=== PATIENT | male | born 1955 | race African-American/Black ===

== ENCOUNTER 2022-11-14 19:03 | Inpatient (IN) | payer MEDICARE, OTHER ==
[~2022-11-14] VITALS: Ht 170.2 cm; Wt 59.9 kg
[2022-11-15] MEDS ORDERED: MAG HYDROX/AL HYDROX/SIMETH 30 ML UDC PO PRN
[2022-11-15] MEDS ORDERED: ACETAMINOPHEN 325 MG TABLET PO PRN
[2022-11-15] MEDS ORDERED: clonazePAM 0.5 MG TABLET PO PRN
[2022-11-15] MEDS ORDERED: MAGNESIUM HYDROXIDE 30 ML UDC PO PRN
[2022-11-15] MEDS ORDERED: PALI6TAB PO (00:06)
[2022-11-15] MEDS ORDERED: MEMA5TAB42 PO (00:08)
[2022-11-15 00:09] VITALS: BP 123/72
[2022-11-15] MEDS ORDERED: DOCU-141 PO (00:09)
[2022-11-15] MEDS ORDERED: FLUT1DIS3 INH (00:11)
[2022-11-15] MEDS ORDERED: IPRA4AER IH (00:14)
[2022-11-15] MEDS ORDERED: [UNRECOGNIZED DRUG - CODE] PO (00:15)
[2022-11-15] MEDS ORDERED: ASPI-1420 PO (00:16)
[2022-11-15] MEDS ORDERED: PANT40TA49 PO (00:17)
[2022-11-15] MEDS ORDERED: CITA20TA16 PO (00:18)
[2022-11-15] MEDS ORDERED: BENZ1TAB7 PO (00:19)
[2022-11-15] MEDS ORDERED: QUET25TA PO (00:20)
[2022-11-15] MEDS ORDERED: FLUV100T3 PO (00:22)
[2022-11-15] MEDS ORDERED: BLOOD SUGAR DIAGNOSTIC 1 EACH STRIP IN ONE (00:30)
--- NOTE | 2022-11-15 01:20 | NUR ---
RN NOTES : ADMISSION NOTES: ADMITTED THIS 67Y/O MALE PATIENT DIRECT ADMITTED FROM [facility], INITIALLY FROM [facility]ULT DAY [facility]ARE. ADMITTED TO 5150 HOLD PER HOLD DTS , PT. STATES HEARING VOICES CONSTANTLY TELLING HIM TO KILL HIMSELF , UPON FACE TO FACE ASSESSMENT PATIENT IS A&OX3 , ANXIOUS EASILY AGITATED ,DISORGNIZED, DISHELVED,POOR HYGINE,MALORDURS UNCOOPERTIVE, HYPERVERBAL ,POOR DECISION MAKING,DENIES SI /HI AT THIS TIME, PT. IS POOR HISTORIAN, POOR INSIGHT ,POOR JUDGEMENT , BOTH MD AWARE AND NOTIFIED OF THE ADMISSION, BELONGINGS CONTRABAND WERE DONE , PT. REFUSED SIGNS ADMISSION CONSENT PAPER DUE TO TIRED, PT. RIGHTS DISCUSS BY INSPECTOR GENERAL , PROVIDE THE PT. WITH HANDBOOK, AND MEDICATIONS GUIDE, ENVIRONMENTAL SAFETY CHECK DONE, ENCOURAGED PT. VERBALIZED ANY FEELING CONCERN TO STAFF, ORIENT TO UNIT POLICY, NO ACUTE DISTRESS NOTED,VITAL SIGNS WNL ,DENIES ANY PAIN AT THIS TIME,WILL CONTINUE TO MONITOR FOR Q15 SAFETY AND BEHAVIOR.
--- NOTE | 2022-11-15 02:30 | NUR ---
RN NOTES: ANXEITY PT. C/O ANXIOUS RESTLESS, PARNOID ,PRN KLONOPIN 0.5 MG PO GIVEN PER PT. REQUEST, WILL CONTINUE TO MONITOR.
[2022-11-15 06:22] LABS: BASOPHILS # (AUTO) 0.1 K/uL (0.0-0.2); BASOPHILS % (AUTO) 0.6 % (0.0-2.0); EOSINOPHILS % (AUTO) 1.3 % (0.0-6.0); HEMATOCRIT 41 % (39-51); HEMOGLOBIN 13.6 g/dL (13.5-17.5); LYMPHOCYTES % (AUTO) 22.4 % (20.0-44.0); MEAN CORPUSCULAR HGB CONC 34 g/dl (31.0-36.0); MEAN CORPUSCULAR VOLUME 91 fL (80-96); MONOCYTES # (AUTO) 0.7 K/uL (0.1-1.30); MONOCYTES % (AUTO) 8.4 % (2.0-12.0); NEUTROPHILS # (AUTO) 5.9 K/uL (1.8-8.9); NEUTROPHILS % (AUTO) 67.3 % (43.0-81.0); PLATELET COUNT (AUTO) 254 K/uL (150-450); RED BLOOD CELL COUNT(AUTO) 4.47 MIL/uL (4.5-6.0); WHITE BLOOD COUNT (AUTO) 8.7 K/uL (4.3-11.0)
[2022-11-15 07:18] LABS: CALCIUM, SERUM 9.1 mg/dL (8.5-10.1); CREATININE 0.8 mg/dL (0.6-1.3); POTASSIUM 4.5 mmol/L (3.5-5.1)
--- NOTE | 2022-11-15 07:50 | NUR ---
RN NOTES PT AWAKE IN BED, ALL 4 BED WHEELS LOCKED AND BED LOW TO FLOOR, PATIENT IS A & O X 2 -3 PATIENT ABLE TO MAKE NEEDS KNOWN. NO PAIN, NO SOB AND NO DISTRESS NOTED. PATIENT COOPERATIVE.NO C/O PAIN OR DISCOMFORT AT THIS TIME. WILL CONTINUE TO MONITOR.
[2022-11-15 08:00] VITALS: BP 135/85
[2022-11-15] MEDS: NICOTINE PATCH (21MG) 21 MG PATCH.TD24 TD SCH (08:40)
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
--- NOTE | 2022-11-15 09:18 | NUR ---
DALILA Initial Discharge Note: Patient currently resides at [address] [place] [address]; ([phone]). Pt shared that he lives with roommates. DALILA will contact pt's sister Angelita ([phone]) to discuss treatment/discharge plan. DALILA will work with the MD, family, and pt to help coordinate appropriate discharge.
--- NOTE | 2022-11-15 09:19 | NUR ---
Treatment Plan: Pt refused to sign treatment plan and was suspicious.
--- NOTE | 2022-11-15 09:53 | NUR ---
Dr. Noriega in the unit and made aware to reconcile home meds.
--- NOTE | 2022-11-15 11:56 | NUR ---
Dr. Benitez ordered Invega 6 mg po, 1 tab BID and pt. may use own med.
[2022-11-15] MEDS ORDERED: MISCELLANEOUS MED 1 EA EA XX ONE (12:00)
--- NOTE | 2022-11-15 12:43 | NUR ---
DALILA Family Contact: DALILA contacted pt's sister Angelita ([phone]) and she stated that she is the DPOA and will bring the documents. She reported that pt resides at a board and care but does not want him to return back. DALILA gave nursing facility options: [facility] to her location. DALILA will send clinicals when pt is stable.
--- NOTE | 2022-11-15 12:48 | NUR ---
RN NOTES CALLED PHARMACY TO VERIFY HOME MEDICATIONS PATIENT KEEP ON ASKING FOR HIS MEDS. WILL MONITOR.
[2022-11-15] MEDS: CITALOPRAM HYDROBROMIDE 20 MG TABLET PO SCH (13:19)
--- NOTE | 2022-11-15 13:56 | NUR ---
Dr. Benitez changed the med from Klonopin prn to Ativan 1 mg po q4hr prn for anxiety/agitation.
[2022-11-15] MEDS: LORAZEPAM 1 MG TABLET PO PRN (14:30)
[2022-11-15 15:47] LABS: BILIRUBIN,URINE NEGATIVE (NEGATIVE); LEUKOCYTE ESTERASE ,URINE NEGATIVE (NEGATIVE); NITRITE, URINE NEGATIVE (NEGATIVE); PROTEIN,URINE NEGATIVE (NEGATIVE); UGLUCOSE NEGATIVE (NEGATIVE); UROBILINOGEN,URINE 0.2 EU/dL (0.2)
[2022-11-15 15:55] LABS: CREATININE, URINE 19.4 MG/DL (30.0-125.0)
[2022-11-15 16:00] VITALS: BP 128/91
[2022-11-15 16:09] LABS: COLOR,URINE LIGHT YELLOW (YELLOW)
[2022-11-15 16:25] LABS: RBC,URINE 0-2 /HPF (0-2); WBC,URINE NONE SEEN /HPF (0-3)
[2022-11-15 16:26] LABS: BACTERIA,URINE Few /HPF (None Seen); SQUAMOUS EPITHELIAL CELL,UR Few /HPF (None Seen)
[2022-11-15] MEDS ORDERED: FLUTICASONE/SALMETEROL 1 DISK IH SCH (17:00)
[2022-11-15] MEDS ORDERED: FLUVOXAMINE MALEATE PO SCH (17:00)
[2022-11-15] MEDS: FLUVOXAMINE MALEATE 50 MG TABLET PO SCH (17:27)
[2022-11-15] MEDS: MEMANTINE HCL 5 MG TABLET PO SCH (17:27)
[2022-11-15] MEDS: PALIPERIDONE 6 MG PO SCH (17:27)
--- NOTE | 2022-11-15 19:21 | NUR ---
RN NOTES PT AWAKE IN BED, A & O X 2 -3 PATIENT ABLE TO MAKE NEEDS KNOWN. NO PAIN, NO SOB AND NO DISTRESS NOTED. PATIENT COOPERATIVE, KEEP ON WALKING IN THE HALLWAY.NO C/O PAIN OR DISCOMFORT AT THIS TIME. WILL ENDORSED TO NIGHT NURSE.
[2022-11-15] MEDS: ALBUTEROL FS 2.5 MG/3 ML VIAL.NEB NEB SCH (19:30)
[2022-11-15] MEDS: BUDESONIDE RESPULE INH 0.5 MG/2 ML AMPUL.NEB IH SCH (19:30)
--- NOTE | 2022-11-15 19:58 | NUR ---
RN NOTES: PATIENT WALKING AROUND IN THE UNIT , REMAINS , DISORGANIZED, PARANOID, EASILY AGITAED , FORGETFUL, DISHELVED , NEEDS FREQUENTLY REDIRECTIONS,NO S/S OF APPARENT DISTRESS AT THIS TIME. NO ACUTE DISTRESS NOTED ,COMPLIANT WITH MEDICATIONS WITH ENCOURAGEMENT. PATIENT DENIES SUICIDAL AND HOMICIDAL IDEATIONS AT THIS TIME. SAFETY PRECAUTIONS MAINTAINED WILL CONTINUE TO MONITOR THIS PATIENT Q15 MINUTES WITH THE HELP OF STAFF TO MAINTAIN SAFETY.
[2022-11-15 20:42] VITALS: BP 121/80
[2022-11-15] MEDS: QUETIAPINE FUMARATE 25 MG TABLET PO SCH (21:18)
[2022-11-15] MEDS: BENZTROPINE MESYLATE (1 MG) 1 MG TABLET PO SCH (21:18)
[2022-11-15] MEDS ORDERED: BENZTROPINE MESYLATE (1 MG) 1 MG TABLET PO SCH (22:00)
[2022-11-16] MEDS: ALBUTEROL FS 2.5 MG/3 ML VIAL.NEB NEB SCH ×4 (02:29→19:40)
--- NOTE | 2022-11-16 07:19 | NUR ---
LAB CLERK OPENING NOTE RECEIVED PT IN BED, EASILY AROUSED. PT IS A/OX3 COOPERATIVE. PT ON ROOM AIR, TOLERATING WELL. NO SOB NOTED. NOT IN ANY SIGN OF RESPIRATORY DISTRESS. SAFETY MEASURES IN PLACE: BED IN LOWEST AND LOCKED POSITION, SIDE RAILS UP, BED ALARM ON, AND CALL LIGHT WITHIN EASY REACH. WILL CONTINUE TO MONITOR PT.
[2022-11-16 08:00] VITALS: BP 127/79
[2022-11-16] MEDS: CITALOPRAM HYDROBROMIDE 20 MG TABLET PO SCH (08:17)
[2022-11-16] MEDS: MEMANTINE HCL 5 MG TABLET PO SCH ×2 (08:17→16:19)
[2022-11-16] MEDS: NICOTINE PATCH (21MG) 21 MG PATCH.TD24 TD SCH (08:17)
[2022-11-16] MEDS: FLUVOXAMINE MALEATE 50 MG TABLET PO SCH ×2 (08:17→16:17)
[2022-11-16] MEDS: BUDESONIDE RESPULE INH 0.5 MG/2 ML AMPUL.NEB IH SCH ×2 (08:28→19:40)
[2022-11-16] MEDS: MULTIVITAMINS,THERAGRAN 1 UDTAB TABLET PO SCH (08:48)
[2022-11-16] MEDS: ASPIRIN EC 81 MG TABLET.DR PO SCH (08:48)
[2022-11-16] MEDS: DOCUSATE SODIUM 100 MG CAPSULE PO SCH (08:48)
[2022-11-16] MEDS: PANTOPRAZOLE 40 MG TABLET.DR PO SCH (08:48)
[2022-11-16] MEDS: PALIPERIDONE 6 MG PO SCH ×2 (09:37→16:18)
[2022-11-16 16:00] VITALS: BP 110/76
[2022-11-16] MEDS: NEOMY SULF/BACITRAC ZN/POLY 15 GM TUBE TP SCH (17:00)
--- NOTE | 2022-11-16 19:38 | NUR ---
RN NOTES: PATIENT RESTING IN ROOM , DISORGANIZED, PARANOID, EASILY AGITAED , FORGETFUL, DISHELVED , NEEDS FREQUENTLY REDIRECTIONS,NO S/S OF APPARENT DISTRESS AT THIS TIME. NO ACUTE DISTRESS NOTED ,COMPLIANT WITH MEDICATIONS. PATIENT DENIES SUICIDAL AND HOMICIDAL IDEATIONS AT THIS TIME. SAFETY PRECAUTIONS MAINTAINED WILL CONTINUE TO MONITOR THIS PATIENT Q15 MINUTES WITH THE HELP OF STAFF TO MAINTAIN SAFETY.
[2022-11-16] MEDS: BENZTROPINE MESYLATE (1 MG) 1 MG TABLET PO SCH (21:11)
[2022-11-16] MEDS: QUETIAPINE FUMARATE 25 MG TABLET PO SCH (21:11)
[2022-11-16 21:15] VITALS: BP 104/61
[2022-11-17] MEDS: ALBUTEROL FS 2.5 MG/3 ML VIAL.NEB NEB SCH ×4 (01:59→20:11)
--- NOTE | 2022-11-17 07:10 | NUR ---
STRADDLE BUG DRIVER NOTES PT AWAKE, WALKING AROUND UNIT, AOX3 PATIENT ABLE TO MAKE NEEDS KNOWN. NO PAIN, NO SOB AND NO DISTRESS NOTED. PATIENT COOPERATIVE, KEEP ON WALKING IN THE HALLWAY.NO C/O PAIN OR DISCOMFORT AT THIS TIME. WILL ENDORSED TO NIGHT NURSE.
[2022-11-17] MEDS: BUDESONIDE RESPULE INH 0.5 MG/2 ML AMPUL.NEB IH SCH ×2 (07:13→20:11)
[2022-11-17 08:00] VITALS: BP 109/71
[2022-11-17] MEDS: DOCUSATE SODIUM 100 MG CAPSULE PO SCH (08:36)
[2022-11-17] MEDS: NEOMY SULF/BACITRAC ZN/POLY 15 GM TUBE TP SCH (08:36)
[2022-11-17] MEDS: NICOTINE PATCH (21MG) 21 MG PATCH.TD24 TD SCH (08:36)
[2022-11-17] MEDS: MEMANTINE HCL 5 MG TABLET PO SCH ×2 (08:36→16:46)
[2022-11-17] MEDS: ASPIRIN EC 81 MG TABLET.DR PO SCH (08:36)
[2022-11-17] MEDS: MULTIVITAMINS,THERAGRAN 1 UDTAB TABLET PO SCH (08:36)
[2022-11-17] MEDS: CITALOPRAM HYDROBROMIDE 20 MG TABLET PO SCH (08:36)
[2022-11-17] MEDS: PANTOPRAZOLE 40 MG TABLET.DR PO SCH (08:36)
[2022-11-17] MEDS: FLUVOXAMINE MALEATE 50 MG TABLET PO SCH ×2 (08:37→16:46)
[2022-11-17] MEDS: PALIPERIDONE 6 MG PO SCH ×2 (08:38→16:46)
[2022-11-17 16:00] VITALS: BP 109/64
[2022-11-17 20:31] VITALS: BP 105/64
[2022-11-17] MEDS: BENZTROPINE MESYLATE (1 MG) 1 MG TABLET PO SCH (21:38)
[2022-11-17] MEDS: QUETIAPINE FUMARATE 25 MG TABLET PO SCH (21:39)
[2022-11-17] MEDS: TEMAZEPAM 7.5 MG CAPSULE PO PRN ×2 (21:39→22:50)
[2022-11-18] MEDS: ALBUTEROL FS 2.5 MG/3 ML VIAL.NEB NEB SCH ×4 (01:30→19:51)
[2022-11-18] MEDS: BUDESONIDE RESPULE INH 0.5 MG/2 ML AMPUL.NEB IH SCH ×2 (06:56→19:51)
--- NOTE | 2022-11-18 07:27 | NUR ---
GPS RN OPENING NOTES: RECEIVED PATIENT UP AND AMBULATING DOWN THE HALLWAY WITH NO S/S AGITATION NOTED. NO RESPIRATORY DISTRESS AT THIS TIME, BREATHING EVEN AND UNLABORED. PATIENT IS ALERT, ORIENTED X 2. PATIENT IS CALM AND COOPERATIVE AT THIS TIME. ALL SAFETY MEASURES IN PLACE, PATIENT DENIES ANY SI/HI AT THIS TIME. BED LOCKED AND IN LOWEST POSITION. WILL CONTINUE TO MONITOR PATIENT Q15 MIN FOR SAFETY AND BEHAVIOR.
[2022-11-18 08:00] VITALS: BP 111/75
[2022-11-18] MEDS: NICOTINE PATCH (21MG) 21 MG PATCH.TD24 TD SCH (09:19)
[2022-11-18] MEDS: DOCUSATE SODIUM 100 MG CAPSULE PO SCH (09:19)
[2022-11-18] MEDS: MEMANTINE HCL 5 MG TABLET PO SCH ×2 (09:19→16:52)
[2022-11-18] MEDS: ASPIRIN EC 81 MG TABLET.DR PO SCH (09:19)
[2022-11-18] MEDS: FLUVOXAMINE MALEATE 50 MG TABLET PO SCH ×2 (09:20→16:52)
[2022-11-18] MEDS: PANTOPRAZOLE 40 MG TABLET.DR PO SCH (09:20)
[2022-11-18] MEDS: MULTIVITAMINS,THERAGRAN 1 UDTAB TABLET PO SCH (09:20)
[2022-11-18] MEDS: NEOMY SULF/BACITRAC ZN/POLY 15 GM TUBE TP SCH (09:20)
[2022-11-18] MEDS: CITALOPRAM HYDROBROMIDE 20 MG TABLET PO SCH (09:20)
[2022-11-18] MEDS: PALIPERIDONE 6 MG PO SCH ×2 (09:20→16:52)
--- NOTE | 2022-11-18 11:06 | NUR ---
SNF Referral: SW sent clinicals to [facility] ([phone]) for placement to [facility]. SW sent H & P, progress notes, and medication list.
--- NOTE | 2022-11-18 11:32 | NUR ---
SNF Contact: SW received a call from [facility] ([phone]) from [facility] who stated pt is accepted.
[2022-11-18 16:00] VITALS: BP 118/75
--- NOTE | 2022-11-18 18:37 | NUR ---
GPS RN CLOSING NOTES: PATIENT SITTING COMFORTABLY IN THE DINING ROOM WATCHING TELEVISION WITH NO S/S AGITATION NOTED. NO RESPIRATORY DISTRESS NOTED THROUGHOUT SHIFT. ON RA, TOLERATING WELL. RESPIRATORY TREATMENT ADMINISTERED BY RT ORDERED. PATIENT IS ALERT, ORIENTED X 2. PATIENT IS CALM AND COOPERATIVE AT THIS TIME. PATENT WAS COMPLIANT WITH ALL HIS MEDICATIONS. ALL SAFETY MEASURES IMPLEMENTED, PATIENT DENIES ANY SI/HI AT THIS TIME. WILL ENDORSE TO INCOMING NURSE FOR CONTINUITY OF CARE.
[2022-11-18 20:25] VITALS: BP 106/74
[2022-11-18] MEDS: BENZTROPINE MESYLATE (1 MG) 1 MG TABLET PO SCH (21:43)
[2022-11-18] MEDS: TEMAZEPAM 7.5 MG CAPSULE PO PRN (21:43)
[2022-11-18] MEDS: QUETIAPINE FUMARATE 25 MG TABLET PO SCH (21:43)
[2022-11-19] MEDS: ALBUTEROL FS 2.5 MG/3 ML VIAL.NEB NEB SCH ×4 (01:30→19:34)
[2022-11-19 08:00] VITALS: BP 127/81
[2022-11-19] MEDS: BUDESONIDE RESPULE INH 0.5 MG/2 ML AMPUL.NEB IH SCH ×2 (08:17→19:34)
[2022-11-19] MEDS: ASPIRIN EC 81 MG TABLET.DR PO SCH (08:54)
[2022-11-19] MEDS: DOCUSATE SODIUM 100 MG CAPSULE PO SCH (08:54)
[2022-11-19] MEDS: MEMANTINE HCL 5 MG TABLET PO SCH ×2 (08:54→17:03)
[2022-11-19] MEDS: NEOMY SULF/BACITRAC ZN/POLY 15 GM TUBE TP SCH (08:54)
[2022-11-19] MEDS: PANTOPRAZOLE 40 MG TABLET.DR PO SCH (08:54)
[2022-11-19] MEDS: MULTIVITAMINS,THERAGRAN 1 UDTAB TABLET PO SCH (08:54)
[2022-11-19] MEDS: CITALOPRAM HYDROBROMIDE 20 MG TABLET PO SCH (08:54)
[2022-11-19] MEDS: NICOTINE PATCH (21MG) 21 MG PATCH.TD24 TD SCH (08:54)
[2022-11-19] MEDS: FLUVOXAMINE MALEATE 50 MG TABLET PO SCH ×2 (08:54→17:03)
[2022-11-19] MEDS: PALIPERIDONE 6 MG PO SCH ×2 (08:55→17:06)
[2022-11-19] MEDS: LORAZEPAM 1 MG TABLET PO PRN (09:58)
--- NOTE | 2022-11-19 10:31 | NUR ---
Court Notification: DALILA contacted pt's sister Angelita ([phone]) and left a voicemail of [phone].
--- NOTE | 2022-11-19 10:42 | NUR ---
Court Hearing: Patient's court hearing was today and it was upheld for GD.
[2022-11-19 16:00] VITALS: BP 119/74
[2022-11-19 20:31] VITALS: BP 104/60
[2022-11-19] MEDS: TEMAZEPAM 7.5 MG CAPSULE PO PRN (21:20)
[2022-11-19] MEDS: QUETIAPINE FUMARATE 25 MG TABLET PO SCH (21:20)
[2022-11-19] MEDS: BENZTROPINE MESYLATE (1 MG) 1 MG TABLET PO SCH (21:20)
[2022-11-20] MEDS: ALBUTEROL FS 2.5 MG/3 ML VIAL.NEB NEB SCH ×5 (01:30→20:54)
[2022-11-20 08:00] VITALS: BP 117/73
[2022-11-20] MEDS: CITALOPRAM HYDROBROMIDE 20 MG TABLET PO SCH (08:22)
[2022-11-20] MEDS: PANTOPRAZOLE 40 MG TABLET.DR PO SCH (08:22)
[2022-11-20] MEDS: MULTIVITAMINS,THERAGRAN 1 UDTAB TABLET PO SCH (08:22)
[2022-11-20] MEDS: DOCUSATE SODIUM 100 MG CAPSULE PO SCH (08:23)
[2022-11-20] MEDS: ASPIRIN EC 81 MG TABLET.DR PO SCH (08:23)
[2022-11-20] MEDS: MEMANTINE HCL 5 MG TABLET PO SCH ×2 (08:23→16:57)
[2022-11-20] MEDS: FLUVOXAMINE MALEATE 50 MG TABLET PO SCH ×2 (08:24→16:57)
[2022-11-20] MEDS: NICOTINE PATCH (21MG) 21 MG PATCH.TD24 TD SCH (08:24)
[2022-11-20] MEDS: PALIPERIDONE 6 MG PO SCH ×2 (08:24→17:00)
--- NOTE | 2022-11-20 09:20 | NUR ---
RT NOTE BREATHING TX GIVEN LATE PER PATIENT'S REQUEST. RN NOTIFIED AND AWARE. NO SOB NOTED AT THIS TIME.
[2022-11-20] MEDS: NEOMY SULF/BACITRAC ZN/POLY 15 GM TUBE TP SCH (09:27)
[2022-11-20] MEDS: ENSURE ENLIVE CHOC 237 ML CAN PO SCH (09:27)
[2022-11-20] MEDS: BUDESONIDE RESPULE INH 0.5 MG/2 ML AMPUL.NEB IH SCH ×2 (09:38→20:54)
[2022-11-20] MEDS: LORAZEPAM 1 MG TABLET PO PRN (12:21)
--- NOTE | 2022-11-20 15:06 | NUR ---
DALILA Family Contact: DALILA contacted pt's sister Angelita ([phone]) and updated her on pt's current condition. SW stated pt accepted at [facility] and she was agreeable of this.
[2022-11-20 16:00] VITALS: BP 117/69
[2022-11-20 20:00] VITALS: BP 126/74
[2022-11-20 20:46] VITALS: BP 136/52
[2022-11-20] MEDS: QUETIAPINE FUMARATE 25 MG TABLET PO SCH (21:19)
[2022-11-20] MEDS: BENZTROPINE MESYLATE (1 MG) 1 MG TABLET PO SCH (21:19)
[2022-11-21] MEDS: ALBUTEROL FS 2.5 MG/3 ML VIAL.NEB NEB SCH ×4 (02:31→19:30)
[2022-11-21] MEDS: BUDESONIDE RESPULE INH 0.5 MG/2 ML AMPUL.NEB IH SCH ×2 (07:30→19:30)
[2022-11-21 08:00] VITALS: BP 131/87
[2022-11-21] MEDS: NICOTINE PATCH (21MG) 21 MG PATCH.TD24 TD SCH (08:12)
[2022-11-21] MEDS: DOCUSATE SODIUM 100 MG CAPSULE PO SCH (08:12)
[2022-11-21] MEDS: ASPIRIN EC 81 MG TABLET.DR PO SCH (08:12)
[2022-11-21] MEDS: MULTIVITAMINS,THERAGRAN 1 UDTAB TABLET PO SCH (08:12)
[2022-11-21] MEDS: FLUVOXAMINE MALEATE 50 MG TABLET PO SCH ×2 (08:12→16:15)
[2022-11-21] MEDS: PANTOPRAZOLE 40 MG TABLET.DR PO SCH (08:12)
[2022-11-21] MEDS: MEMANTINE HCL 5 MG TABLET PO SCH ×2 (08:12→16:14)
[2022-11-21] MEDS: CITALOPRAM HYDROBROMIDE 20 MG TABLET PO SCH (08:12)
[2022-11-21] MEDS: NEOMY SULF/BACITRAC ZN/POLY 15 GM TUBE TP SCH (08:13)
[2022-11-21] MEDS: PALIPERIDONE 6 MG PO SCH ×2 (08:13→16:14)
[2022-11-21] MEDS: ENSURE ENLIVE CHOC 237 ML CAN PO SCH (08:13)
[2022-11-21 16:00] VITALS: BP 135/57
[2022-11-21] MEDS: LORAZEPAM 1 MG TABLET PO PRN (18:40)
--- NOTE | 2022-11-21 18:49 | NUR ---
RN NOTES PATIENT NOTED RESTLESS, AGITATED AND STARTED HITTING HIS HEAD WITH HIS HAND. PT PACIFIED AND ASKED NOT TO HIT HIS HEAD, HE COMPLIED AND STATED THAT HE HATED THIS PLACE (UNIT). PRN ATIVAN 1 MG TAB GIVEN AT 1840. PT NOW RESTING IN HIS BED. WILL CONTINUE TO MONITOR PT'S BEHAVIOR.
[2022-11-21 20:00] VITALS: BP 135/61
[2022-11-21] MEDS: QUETIAPINE FUMARATE 25 MG TABLET PO SCH (21:07)
[2022-11-21] MEDS: BENZTROPINE MESYLATE (1 MG) 1 MG TABLET PO SCH (21:07)
[2022-11-22] MEDS: ALBUTEROL FS 2.5 MG/3 ML VIAL.NEB NEB SCH ×4 (01:30→19:57)
[2022-11-22] MEDS: LORAZEPAM 1 MG TABLET PO PRN (05:40)
--- NOTE | 2022-11-22 05:41 | NUR ---
RN NOTE PT IS VERY ANXIOUS AND WORRY ABOUT HE IS GOING TO BE PUT BEHIND BARS BECAUSE "I AM SLOW". PRN PO MEDICATION, ATIVAN 1 MG, GIVEN TO THE PT PER MD ORDER.
[2022-11-22 06:26] LABS: POTASSIUM 4.3 mmol/L (3.5-5.1)
[2022-11-22 08:00] VITALS: BP 126/85
[2022-11-22] MEDS: BUDESONIDE RESPULE INH 0.5 MG/2 ML AMPUL.NEB IH SCH ×2 (08:45→19:57)
[2022-11-22] MEDS: NICOTINE PATCH (21MG) 21 MG PATCH.TD24 TD SCH (09:31)
[2022-11-22] MEDS: ASPIRIN EC 81 MG TABLET.DR PO SCH (09:31)
[2022-11-22] MEDS: PALIPERIDONE 6 MG PO SCH ×2 (09:31→16:23)
[2022-11-22] MEDS: NEOMY SULF/BACITRAC ZN/POLY 15 GM TUBE TP SCH (09:31)
[2022-11-22] MEDS: PANTOPRAZOLE 40 MG TABLET.DR PO SCH (09:32)
[2022-11-22] MEDS: CITALOPRAM HYDROBROMIDE 20 MG TABLET PO SCH (09:32)
[2022-11-22] MEDS: FLUVOXAMINE MALEATE 50 MG TABLET PO SCH ×2 (09:32→16:24)
[2022-11-22] MEDS: DOCUSATE SODIUM 100 MG CAPSULE PO SCH (09:32)
[2022-11-22] MEDS: MEMANTINE HCL 5 MG TABLET PO SCH ×2 (09:33→16:23)
[2022-11-22] MEDS: MULTIVITAMINS,THERAGRAN 1 UDTAB TABLET PO SCH (09:33)
[2022-11-22] MEDS: ENSURE ENLIVE CHOC 237 ML CAN PO SCH (09:33)
[2022-11-22 16:00] VITALS: BP 127/76
--- NOTE | 2022-11-22 18:59 | NUR ---
PATIENT WAS OBSERVED COOPERATIVE ALL THROUGHOUT THE DAY. TOOK ALL HIS MEDS ON SCHEDULE
[2022-11-22 20:00] VITALS: BP 108/67
[2022-11-22] MEDS: BENZTROPINE MESYLATE (1 MG) 1 MG TABLET PO SCH (21:07)
[2022-11-22] MEDS: QUETIAPINE FUMARATE 25 MG TABLET PO SCH (21:07)
[2022-11-23] MEDS: ALBUTEROL FS 2.5 MG/3 ML VIAL.NEB NEB SCH ×4 (01:30→20:29)
[2022-11-23 08:00] VITALS: BP 128/82
[2022-11-23] MEDS: ASPIRIN EC 81 MG TABLET.DR PO SCH (08:31)
[2022-11-23] MEDS: MEMANTINE HCL 5 MG TABLET PO SCH ×2 (08:31→16:48)
[2022-11-23] MEDS: FLUVOXAMINE MALEATE 50 MG TABLET PO SCH ×2 (08:31→16:48)
[2022-11-23] MEDS: BUDESONIDE RESPULE INH 0.5 MG/2 ML AMPUL.NEB IH SCH ×2 (08:31→20:29)
[2022-11-23] MEDS: MULTIVITAMINS,THERAGRAN 1 UDTAB TABLET PO SCH (08:31)
[2022-11-23] MEDS: ENSURE ENLIVE CHOC 237 ML CAN PO SCH (08:31)
[2022-11-23] MEDS: DOCUSATE SODIUM 100 MG CAPSULE PO SCH (08:31)
[2022-11-23] MEDS: CITALOPRAM HYDROBROMIDE 20 MG TABLET PO SCH (08:31)
[2022-11-23] MEDS: PALIPERIDONE 6 MG PO SCH ×2 (08:32→16:49)
[2022-11-23] MEDS: PANTOPRAZOLE 40 MG TABLET.DR PO SCH (08:35)
[2022-11-23] MEDS: NICOTINE PATCH (21MG) 21 MG PATCH.TD24 TD SCH (08:41)
[2022-11-23] MEDS: NEOMY SULF/BACITRAC ZN/POLY 15 GM TUBE TP SCH (09:00)
[2022-11-23] MEDS: LORAZEPAM 1 MG TABLET PO PRN (09:37)
--- NOTE | 2022-11-23 09:38 | NUR ---
RN-NOTES PATIENT REQUESTING ATIVAN FOR ANXIETY. ATIVAN 1MG P.O GIVEN PRN ORDER. WILL CONT. MONITORING FOR SAFETY AND BEHAVIOR.
--- NOTE | 2022-11-23 10:35 | NUR ---
RN-NOTES PATIENT WATCHING TV IN THE DAY ROOM,CALM,NO ACUTE DISTRESS NOTED.
[2022-11-23 16:00] VITALS: BP 119/75
--- NOTE | 2022-11-23 17:59 | NUR ---
RN-NOTES PATIENT VISIBLE IN THE UNIT AWAKE,A/O X2,NO ACUTE DISTRESS NOTED. NOTED PATIENT WITH HYPERVERBAL,FORGETFUL BUT COOPERATIVE WITH STAFF.COMPLIANT WITH MEDICATIONS.PATIENT IS AMBULATORY STEADY GAIT.ALL NEEDS ATTENDED AND ANTICIPATED. WILL CONT. MONITORING FOR SAFETY AND BEHAVIOR.WILL ENDORSE TO THE INCOMING NURSE FOR THE CONTINUITY OF CARE.
--- NOTE | 2022-11-23 19:43 | NUR ---
RN NOTES: PATIENT WALKING AROUND THE UNIT , CONFUSED ,DISORGANIZED, PARANOID, EASILY AGITAED , FORGETFUL, DISHELVED , NEEDS FREQUENTLY REDIRECTIONS,NO S/S OF APPARENT DISTRESS AT THIS TIME. NO ACUTE DISTRESS NOTED ,COMPLIANT WITH MEDICATIONS. PATIENT DENIES SUICIDAL AND HOMICIDAL IDEATIONS AT THIS TIME. SAFETY PRECAUTIONS MAINTAINED WILL CONTINUE TO MONITOR THIS PATIENT Q15 MINUTES WITH THE HELP OF STAFF TO MAINTAIN SAFETY.
[2022-11-23 20:00] VITALS: BP 101/65
[2022-11-23] MEDS: QUETIAPINE FUMARATE 25 MG TABLET PO SCH (21:18)
[2022-11-23] MEDS: BENZTROPINE MESYLATE (1 MG) 1 MG TABLET PO SCH (21:19)
[2022-11-24] MEDS: ALBUTEROL FS 2.5 MG/3 ML VIAL.NEB NEB SCH ×4 (01:30→20:24)
--- NOTE | 2022-11-24 02:13 | NUR ---
NEB TX NOT GIVEN. PT ASLEEP. REQUESTED TO NOT WAKE UP PT. RN AWARE
[2022-11-24] MEDS: BUDESONIDE RESPULE INH 0.5 MG/2 ML AMPUL.NEB IH SCH ×2 (07:30→20:24)
--- NOTE | 2022-11-24 07:30 | NUR ---
PT RECEIVED RESTING COMFORTABLY IN BED. NO S/S OR C/O PAIN OR DISTRESS NOTED SIDE RAILS UP X2. WILL CONTINUE PLAN OF CARE.
[2022-11-24 08:00] VITALS: BP 129/84
[2022-11-24] MEDS: CITALOPRAM HYDROBROMIDE 20 MG TABLET PO SCH (08:52)
[2022-11-24] MEDS: PANTOPRAZOLE 40 MG TABLET.DR PO SCH (08:53)
[2022-11-24] MEDS: DOCUSATE SODIUM 100 MG CAPSULE PO SCH (08:53)
[2022-11-24] MEDS: ASPIRIN EC 81 MG TABLET.DR PO SCH (08:53)
[2022-11-24] MEDS: FLUVOXAMINE MALEATE 50 MG TABLET PO SCH ×2 (08:53→16:11)
[2022-11-24] MEDS: PALIPERIDONE 6 MG PO SCH ×2 (08:53→16:11)
[2022-11-24] MEDS: MEMANTINE HCL 5 MG TABLET PO SCH ×2 (08:53→16:11)
[2022-11-24] MEDS: NICOTINE PATCH (21MG) 21 MG PATCH.TD24 TD SCH (08:53)
[2022-11-24] MEDS: MULTIVITAMINS,THERAGRAN 1 UDTAB TABLET PO SCH (08:53)
[2022-11-24] MEDS: NEOMY SULF/BACITRAC ZN/POLY 15 GM TUBE TP SCH (08:54)
[2022-11-24] MEDS: ENSURE ENLIVE CHOC 237 ML CAN PO SCH (08:54)
[2022-11-24] MEDS: LORAZEPAM 1 MG TABLET PO PRN (10:02)
[2022-11-24 16:00] VITALS: BP 110/72
--- NOTE | 2022-11-24 18:30 | NUR ---
CHANGE OF SHIFT REPORT PT RESTING COMFORTABLY IN BED. NO S/S OR C/O PAIN OR DISTRESS NOTED. SIDE RAILS UP X2, CALL LIGHT LEFT WITHIN REACH. PT KEPT CLEAN, DRY, AND COMFORTABLE. NO SIGNIFICANT CHANGES SINCE PREVIOUS SHIFT.
[2022-11-24] MEDS: BENZTROPINE MESYLATE (1 MG) 1 MG TABLET PO SCH (21:24)
[2022-11-24] MEDS: QUETIAPINE FUMARATE 25 MG TABLET PO SCH (21:25)
[2022-11-24 21:37] VITALS: BP 96/56
[2022-11-25] MEDS: ALBUTEROL FS 2.5 MG/3 ML VIAL.NEB NEB SCH ×4 (01:30→19:28)
[2022-11-25] MEDS: LORAZEPAM 1 MG TABLET PO PRN ×2 (05:27→18:07)
--- NOTE | 2022-11-25 05:31 | NUR ---
Pt c/o anxiety. Least restrictive measures ineffective. Ativan 1 mg po prn given as ordered. Will continue to monitor.
--- NOTE | 2022-11-25 06:37 | NUR ---
Post 1 hr Ativan effective. Pt calm and asleep in bed easy to arouse. Frequent visual check done for safety. Will continue to monitor. Will endorse to next shift.
--- NOTE | 2022-11-25 07:30 | NUR ---
RN OPENING NOTES RECEIVED PATIENT ON BED AWAKE AND A/O X3. ON ROOM AIR TOLERATING WELL. NOT IN DISTRESS. PATIENT APPEARS TO BE CALM AND COOPERATIVE WITH HIS CARE. SAFETY MEASURES IN PLACED. BED ON LOWEST LOCKED POSITION, SIDE RAILS UP X2. WILL CONTINUE TO MONITOR.
[2022-11-25 08:00] VITALS: BP 117/73
[2022-11-25] MEDS: BUDESONIDE RESPULE INH 0.5 MG/2 ML AMPUL.NEB IH SCH ×2 (08:01→19:28)
[2022-11-25] MEDS: DOCUSATE SODIUM 100 MG CAPSULE PO SCH (09:54)
[2022-11-25] MEDS: CITALOPRAM HYDROBROMIDE 20 MG TABLET PO SCH (09:54)
[2022-11-25] MEDS: PANTOPRAZOLE 40 MG TABLET.DR PO SCH (09:54)
[2022-11-25] MEDS: MEMANTINE HCL 5 MG TABLET PO SCH ×2 (09:54→16:51)
[2022-11-25] MEDS: FLUVOXAMINE MALEATE 50 MG TABLET PO SCH ×2 (09:54→16:51)
[2022-11-25] MEDS: NICOTINE PATCH (21MG) 21 MG PATCH.TD24 TD SCH (09:59)
[2022-11-25] MEDS: MULTIVITAMINS,THERAGRAN 1 UDTAB TABLET PO SCH (10:00)
[2022-11-25] MEDS: PALIPERIDONE 6 MG PO SCH ×2 (10:00→16:51)
[2022-11-25] MEDS: ENSURE ENLIVE CHOC 237 ML CAN PO SCH (10:00)
[2022-11-25] MEDS: ASPIRIN EC 81 MG TABLET.DR PO SCH (10:00)
[2022-11-25] MEDS: NEOMY SULF/BACITRAC ZN/POLY 15 GM TUBE TP SCH (10:00)
[2022-11-25 16:00] VITALS: BP 121/76
--- NOTE | 2022-11-25 18:30 | NUR ---
RN CLOSING NOTES PATIENT ON BED AWAKE AND A/O X3. ON ROOM AIR TOLERATING WELL. NOT IN DISTRESS. PATIENT IS CALM AND COOPERATIVE WITH HIS CARE. MED COMPLIANT. ATIVAN GIVEN PER PATIENT'S REQUEST PRN FOR AGITATION. SAFETY MEASURES IN PLACED. BED ON LOWEST LOCKED POSITION, SIDE RAILS UP X2. WILL ENDORSE TO NEXT SHIFT FOR VANE.
[2022-11-25 19:52] VITALS: BP 115/58
[2022-11-25] MEDS: BENZTROPINE MESYLATE (1 MG) 1 MG TABLET PO SCH (21:24)
[2022-11-25] MEDS: QUETIAPINE FUMARATE 25 MG TABLET PO SCH (21:25)
[2022-11-26] MEDS: ALBUTEROL FS 2.5 MG/3 ML VIAL.NEB NEB SCH ×3 (01:30→13:33)
--- NOTE | 2022-11-26 02:19 | NUR ---
RT NOTE TX NOT GIVEN, PT REFUSED TX. NO SOB NOTED. NURSE AWARE.
--- NOTE | 2022-11-26 04:00 | NUR ---
Covid test done and sent to lab for possible discharge at 1pm.
[2022-11-26 08:00] VITALS: BP 132/78
--- NOTE | 2022-11-26 08:03 | NUR ---
SW Discharge Note: Patient will be discharged to [facility] [place] [facility] located at [address] [place] [address]; ([phone]) via ambulance. [facility] from [facility] [place] accepted pt and is welcoming pt today. Patients sister Angelita NAIK ([phone]) is aware and agreeable. Patient appears to be alert and oriented x2 and is willing to go to the nursing facility. Pt denies visual/auditory hallucinations. Pt denies denies suicidal or homicidal ideation. Patient will continue to follow-up with (psychiatrist) Dr. Jay [address], [place] [address]; ([phone]). (pc installation engineer) Dr. Ch [id number], [place] [address]; ([phone]). Pt presented with euthymic mood and congruent affect
[2022-11-26] MEDS: NICOTINE PATCH (21MG) 21 MG PATCH.TD24 TD SCH (08:31)
[2022-11-26] MEDS: ASPIRIN EC 81 MG TABLET.DR PO SCH (08:31)
[2022-11-26] MEDS: PANTOPRAZOLE 40 MG TABLET.DR PO SCH (08:31)
[2022-11-26] MEDS: FLUVOXAMINE MALEATE 50 MG TABLET PO SCH (08:31)
[2022-11-26] MEDS: DOCUSATE SODIUM 100 MG CAPSULE PO SCH (08:31)
[2022-11-26] MEDS: MULTIVITAMINS,THERAGRAN 1 UDTAB TABLET PO SCH (08:32)
[2022-11-26] MEDS: CITALOPRAM HYDROBROMIDE 20 MG TABLET PO SCH (08:32)
[2022-11-26] MEDS: BUDESONIDE RESPULE INH 0.5 MG/2 ML AMPUL.NEB IH SCH (08:32)
[2022-11-26] MEDS: MEMANTINE HCL 5 MG TABLET PO SCH (08:32)
[2022-11-26] MEDS: ENSURE ENLIVE CHOC 237 ML CAN PO SCH (08:33)
[2022-11-26] MEDS: NEOMY SULF/BACITRAC ZN/POLY 15 GM TUBE TP SCH (08:34)
[2022-11-26] MEDS: PALIPERIDONE 6 MG PO SCH (08:34)
[2022-11-26] MEDS: LORAZEPAM 1 MG TABLET PO PRN (12:55)
--- NOTE | 2022-11-26 12:56 | NUR ---
RN- NOTES ATIVAN ADMINISTERED DUE TO INCREASED ANXIETY AND PATIENT STATING, "I REALLY NEED SOME MEDICATION TO HELP ME CALM DOWN, CAN YOU PLEASE HELP ME?"
--- NOTE | 2022-11-26 13:30 | NUR ---
RN- DISCHARGE NOTES 67 YEAR OLD MALE DISCHARGED TO [facility] IN STABLE CONDITION. COMPLIANT WITH MEDICATIONS, COOPERATIVE WITH TREATMENT PLANS. PATIENT DENIES SI/HI AND INSTRUCTED TO GO TO THE CLOSEST ER IF DEVELOPING SI/HI. DENIES AUDITORY AND VISUAL HALLUCINATIONS. BEHAVIOR IMPROVED, PSYCHIATRIC TREATMENT PLANS MET, MEDICAL TREATMENT PLANS DEFERRED FOR CONTINUAL MONITOR. EDUCATED PATIENT ABOUT AFTER CARE PLAN AND COPY PROVIDED. RETURNED PERSONAL BELONGINGS TO PATIENT. MEDICATIONS RECONCILED WITH PSYCHIATRIST DR. KELLER AND MED PHARMACY ANALYST DR. PARHAM. PSYCHIATRIST ORDERED TO DISCONTINUE HOLD AND DISCHARGE TO SNF. REPORT GIVEN TO REFUGIO VELAZQUEZ AT [facility] FOR CONTINUITY OF CARE. PATIENT SIGNED DISCHARGE PAPERWORK. WOUND PICTURES TAKEN AND DOCUMENTED IN CHART. PATIENT LEFT THE UNIT AT 1330 VIA AMBULANCE ON GURNEY.
== END 2022-11-26 13:30 | DRG 885 ==
LOC: GPS 23:12
PROVIDERS: ADMIT Psychiatry & Neurology Psychiatry; ATTEND Internal Medicine
DX: F25.9 Schizoaffective disorder, unspecified (principal); E87.1 Hypo-osmolality and hyponatremia; F29 Unspecified psychosis not due to a substance or known physiological condition; Z73.6 Limitation of activities due to disability; G40.909 Epilepsy, unspecified, not intractable, without status epilepticus; G62.9 Polyneuropathy, unspecified; J44.9 Chronic obstructive pulmonary disease, unspecified; F42.9 Obsessive-compulsive disorder, unspecified; F41.9 Anxiety disorder, unspecified; F32.A Depression, unspecified; M62.81 Muscle weakness (generalized); F17.200 Nicotine dependence, unspecified, uncomplicated; Z71.6 Tobacco abuse counseling; F03.90 Unspecified dementia, unspecified severity, without behavioral disturbance, psychotic disturbance, mood disturbance, and anxiety; S00.81XA Abrasion of other part of head, initial encounter; X58.XXXA Exposure to other specified factors, initial encounter; Y93.9 Activity, unspecified; Y92.89 Other specified places as the place of occurrence of the external cause; Z20.822 Contact with and (suspected) exposure to COVID-19
CPT/HCPCS: 36415; 80048-TC; 80061-TC; 81001; 82570-TC; 82962-TC; 84132-TC; 84295-TC; 84300-TC; 84443-TC; 85025-TC; 87081-TC; 94799-TC

== ENCOUNTER 2023-01-02 18:50 | Inpatient (IN) | payer MEDICARE, OTHER ==
[~2023-01-02] VITALS: Ht 177.8 cm; Wt 63.5 kg
[2023-01-02 00:45] VITALS: BP 108/70
[~2023-01-02 18:50] MED LIST: ASPI-1420 PO; BENZ1TAB7 PO; CITA20TA16 PO; DOCU-141 PO; FLUT1DIS3 INH; FLUV100T3 PO; IPRA4AER IH; MEMA5TAB42 PO; PALI6TAB PO; PANT40TA49 PO; QUET25TA PO; [UNRECOGNIZED DRUG - CODE] PO
[2023-01-02 19:38] LABS: BASOPHILS # (AUTO) 0.1 K/uL (0.0-0.2); BASOPHILS % (AUTO) 0.7 % (0.0-2.0); EOSINOPHILS % (AUTO) 1.9 % (0.0-6.0); HEMATOCRIT 35 % (39-51); HEMOGLOBIN 11.9 g/dL (13.5-17.5); LYMPHOCYTES # (AUTO) 2.1 K/uL (0.8-4.8); LYMPHOCYTES % (AUTO) 23.7 % (20.0-44.0); MEAN CORPUSCULAR HGB CONC 34 g/dl (31.0-36.0); MEAN CORPUSCULAR VOLUME 90 fL (80-96); MONOCYTES # (AUTO) 0.7 K/uL (0.1-1.30); MONOCYTES % (AUTO) 8.1 % (2.0-12.0); NEUTROPHILS # (AUTO) 5.7 K/uL (1.8-8.9); NEUTROPHILS % (AUTO) 65.6 % (43.0-81.0); PLATELET COUNT (AUTO) 315 K/uL (150-450); RED BLOOD CELL COUNT(AUTO) 3.94 MIL/uL (4.5-6.0); WHITE BLOOD COUNT (AUTO) 8.6 K/uL (4.3-11.0)
[2023-01-02 19:51] LABS: CALCIUM, SERUM 9.1 mg/dL (8.5-10.1); CARBON DIOXIDE 27 mmol/L (21-32); CHLORIDE 99 mmol/L (98-107); CREATININE 0.8 mg/dL (0.6-1.3); GLUCOSE 96 mg/dL (74-106); POTASSIUM 4.1 mmol/L (3.5-5.1); SODIUM SERUM 135 mmol/L (136-145); UREA NITROGEN, BLOOD 12 mg/dL (7-18)
[2023-01-02 19:57] LABS: ALANINE AMINOTRANSFERASE 21 U/L (12-78); ALBUMIN 3.3 g/dL (3.4-5.0); ALKALINE PHOSPHATASE 97 U/L (46-116); ASPARTATE AMINOTRANSFERASE 21 U/L (15-37); BILIRUBIN,TOTAL 0.2 mg/dL (0.2-1.0); TOTAL PROTEIN, SERUM 6.4 g/dL (6.4-8.2)
[2023-01-02 19:58] LABS: ALCOHOL, BLOOD < 10 mg/dL (0-0)
[2023-01-02 20:41] LABS: BILIRUBIN,URINE NEGATIVE (NEGATIVE); COLOR,URINE YELLOW (YELLOW); LEUKOCYTE ESTERASE ,URINE NEGATIVE (NEGATIVE); NITRITE, URINE NEGATIVE (NEGATIVE); PROTEIN,URINE NEGATIVE (NEGATIVE); UGLUCOSE NEGATIVE (NEGATIVE); UROBILINOGEN,URINE 0.2 EU/dL (0.2)
[2023-01-02 21:22] LABS: BACTERIA,URINE None seen /HPF (None Seen); SQUAMOUS EPITHELIAL CELL,UR 0-2 /HPF (None Seen); WBC,URINE 0-2 /HPF (0-3)
[2023-01-02] MEDS: BENZTROPINE MESYLATE (1 MG) 1 MG TABLET PO SCH (23:22)
[2023-01-03] MEDS ORDERED: MAGNESIUM HYDROXIDE 30 ML UDC PO PRN (01:00)
[2023-01-03] MEDS ORDERED: MAG HYDROX/AL HYDROX/SIMETH 30 ML UDC PO PRN (01:00)
[2023-01-03] MEDS ORDERED: BLOOD SUGAR DIAGNOSTIC 1 EACH STRIP IN ONE (01:30)
[2023-01-03] MEDS ORDERED: Medication Not On Formulary EA (Ipratropium/Albuterol Sulfate (Combivent Respimat 20-100 XX SCH (05:00)
[2023-01-03] MEDS ORDERED: FLUTICASONE/SALMETEROL 1 DISK IH SCH (07:05)
[2023-01-03] MEDS: IPRATROPIUM NEB FS 0.5 MG/2.5 ML AMPUL.NEB IH SCH ×3 (07:35→23:30)
[2023-01-03] MEDS: ALBUTEROL FS 2.5 MG/0.5 ML VIAL.NEB NEB SCH ×3 (07:35→23:30)
[2023-01-03 08:00] VITALS: BP 136/71
[2023-01-03] MEDS: MULTIVIT W/MINERALS 1 TAB TABLET PO SCH (09:04)
[2023-01-03] MEDS: MEMANTINE HCL 5 MG TABLET PO SCH ×2 (09:04→20:22)
[2023-01-03] MEDS: ASPIRIN EC 81 MG TABLET.DR PO SCH (09:04)
[2023-01-03] MEDS: DOCUSATE SODIUM 100 MG CAPSULE PO SCH (09:04)
[2023-01-03] MEDS: PANTOPRAZOLE 40 MG TABLET.DR PO SCH (09:04)
[2023-01-03] MEDS: FLUTICASONE/VILANTEROL 1 EACH BLST.W.DEV IH SCH (09:06)
[2023-01-03] MEDS ORDERED: PALI234D IM (10:03)
[2023-01-03] MEDS ORDERED: TEMA7.5C PO (10:03)
[2023-01-03] MEDS ORDERED: IPRA3AMP23 IH (10:03)
[2023-01-03] MEDS ORDERED: POLY17PO4 PO (10:03)
[2023-01-03] MEDS ORDERED: MULT-594 PO (10:03)
[2023-01-03] MEDS ORDERED: MAG30ORA PO (10:03)
[2023-01-03] MEDS ORDERED: ASPI-1169 PO (10:03)
[2023-01-03] MEDS ORDERED: RISP0.2515 PO (10:03)
[2023-01-03] MEDS ORDERED: ACET-868 PO (10:03)
[2023-01-03] MEDS ORDERED: MAGN400O6 PO (10:03)
[2023-01-03] MEDS ORDERED: LORA-259 PO (10:03)
[2023-01-03] MEDS ORDERED: PANT40TA49 PO (10:06)
[2023-01-03] MEDS: risperiDONE 1 MG TABLET PO SCH ×2 (13:50→17:41)
[2023-01-03 16:00] VITALS: BP 132/63
[2023-01-03] MEDS: clonazePAM 0.5 MG TABLET PO PRN (20:45)
[2023-01-03 21:08] VITALS: BP 145/91
[2023-01-03] MEDS: BENZTROPINE MESYLATE (1 MG) 1 MG TABLET PO SCH (21:19)
[2023-01-03] MEDS: TEMAZEPAM 7.5 MG CAPSULE PO PRN (21:49)
[2023-01-04] MEDS: clonazePAM 0.5 MG TABLET PO PRN ×2 (03:25→13:37)
[2023-01-04] MEDS: IPRATROPIUM NEB FS 0.5 MG/2.5 ML AMPUL.NEB IH SCH ×3 (07:35→23:30)
[2023-01-04] MEDS: ALBUTEROL FS 2.5 MG/0.5 ML VIAL.NEB NEB SCH ×3 (07:35→23:30)
[2023-01-04 07:37] LABS: BASOPHILS # (AUTO) 0.1 K/uL (0.0-0.2); BASOPHILS % (AUTO) 0.9 % (0.0-2.0); EOSINOPHILS % (AUTO) 2.1 % (0.0-6.0); HEMATOCRIT 40 % (39-51); HEMOGLOBIN 13.3 g/dL (13.5-17.5); LYMPHOCYTES # (AUTO) 1.4 K/uL (0.8-4.8); LYMPHOCYTES % (AUTO) 19.6 % (20.0-44.0); MEAN CORPUSCULAR HGB CONC 33 g/dl (31.0-36.0); MEAN CORPUSCULAR VOLUME 91 fL (80-96); MONOCYTES # (AUTO) 0.7 K/uL (0.1-1.30); NEUTROPHILS # (AUTO) 4.9 K/uL (1.8-8.9); NEUTROPHILS % (AUTO) 68.4 % (43.0-81.0); PLATELET COUNT (AUTO) 343 K/uL (150-450); WHITE BLOOD COUNT (AUTO) 7.2 K/uL (4.3-11.0)
[2023-01-04 08:00] VITALS: BP 152/88
[2023-01-04 08:18] LABS: ALBUMIN 3.8 g/dL (3.4-5.0); BILIRUBIN,TOTAL 0.2 mg/dL (0.2-1.0); CALCIUM, SERUM 9.4 mg/dL (8.5-10.1); CREATININE 0.9 mg/dL (0.6-1.3); POTASSIUM 4.6 mmol/L (3.5-5.1); TOTAL PROTEIN, SERUM 7.3 g/dL (6.4-8.2)
[2023-01-04] MEDS: ASPIRIN EC 81 MG TABLET.DR PO SCH (09:01)
[2023-01-04] MEDS: PANTOPRAZOLE 40 MG TABLET.DR PO SCH (09:01)
[2023-01-04] MEDS: DOCUSATE SODIUM 100 MG CAPSULE PO SCH (09:01)
[2023-01-04] MEDS: MEMANTINE HCL 5 MG TABLET PO SCH ×2 (09:02→20:11)
[2023-01-04] MEDS: FLUTICASONE/VILANTEROL 1 EACH BLST.W.DEV IH SCH (09:02)
[2023-01-04] MEDS: risperiDONE 1 MG TABLET PO SCH ×2 (09:02→17:41)
[2023-01-04] MEDS: MULTIVIT W/MINERALS 1 TAB TABLET PO SCH (09:02)
[2023-01-04 16:00] VITALS: BP 137/79
[2023-01-04 20:00] VITALS: BP 129/70
[2023-01-04] MEDS: BENZTROPINE MESYLATE (1 MG) 1 MG TABLET PO SCH (21:03)
[2023-01-05] MEDS: TEMAZEPAM 7.5 MG CAPSULE PO PRN ×2 (01:39→23:14)
[2023-01-05] MEDS: ALBUTEROL FS 2.5 MG/0.5 ML VIAL.NEB NEB SCH ×2 (07:35→15:30)
[2023-01-05] MEDS: IPRATROPIUM NEB FS 0.5 MG/2.5 ML AMPUL.NEB IH SCH ×2 (07:35→15:30)
[2023-01-05 08:00] VITALS: BP 145/89
[2023-01-05] MEDS: FLUTICASONE/VILANTEROL 1 EACH BLST.W.DEV IH SCH (08:20)
[2023-01-05] MEDS: clonazePAM 0.5 MG TABLET PO PRN ×2 (08:23→13:20)
[2023-01-05] MEDS: ASPIRIN EC 81 MG TABLET.DR PO SCH (08:23)
[2023-01-05] MEDS: MEMANTINE HCL 5 MG TABLET PO SCH ×2 (08:23→21:06)
[2023-01-05] MEDS: MULTIVIT W/MINERALS 1 TAB TABLET PO SCH (08:23)
[2023-01-05] MEDS: PANTOPRAZOLE 40 MG TABLET.DR PO SCH (08:23)
[2023-01-05] MEDS: DOCUSATE SODIUM 100 MG CAPSULE PO SCH (08:23)
[2023-01-05] MEDS: risperiDONE 1 MG TABLET PO SCH ×2 (08:23→17:20)
[2023-01-05 16:00] VITALS: BP 145/75
[2023-01-05 21:03] VITALS: BP 134/74
[2023-01-05] MEDS: BENZTROPINE MESYLATE (1 MG) 1 MG TABLET PO SCH (21:06)
[2023-01-06] MEDS: TEMAZEPAM 7.5 MG CAPSULE PO PRN (01:58)
[2023-01-06] MEDS: clonazePAM 0.5 MG TABLET PO PRN ×4 (04:54→19:34)
[2023-01-06] MEDS: ACETAMINOPHEN 325 MG TABLET PO PRN (05:32)
[2023-01-06] MEDS: PANTOPRAZOLE 40 MG TABLET.DR PO SCH (06:52)
[2023-01-06 08:00] VITALS: BP 118/76
[2023-01-06] MEDS: risperiDONE 1 MG TABLET PO SCH ×2 (08:17→17:20)
[2023-01-06] MEDS: DOCUSATE SODIUM 100 MG CAPSULE PO SCH (08:17)
[2023-01-06] MEDS: MULTIVIT W/MINERALS 1 TAB TABLET PO SCH (08:17)
[2023-01-06] MEDS: MEMANTINE HCL 5 MG TABLET PO SCH ×2 (08:17→21:13)
[2023-01-06] MEDS: ASPIRIN EC 81 MG TABLET.DR PO SCH (08:34)
[2023-01-06] MEDS: FLUTICASONE/VILANTEROL 1 EACH BLST.W.DEV IH SCH (09:06)
[2023-01-06 20:10] VITALS: BP 113/64
[2023-01-06] MEDS: BENZTROPINE MESYLATE (1 MG) 1 MG TABLET PO SCH (21:13)
[2023-01-07] MEDS: TEMAZEPAM 7.5 MG CAPSULE PO PRN ×2 (01:09→21:36)
[2023-01-07] MEDS: ALBUTEROL FS 2.5 MG/0.5 ML VIAL.NEB NEB SCH ×5 (01:46→23:30)
[2023-01-07] MEDS: IPRATROPIUM NEB FS 0.5 MG/2.5 ML AMPUL.NEB IH SCH ×5 (01:46→23:30)
[2023-01-07] MEDS: clonazePAM 0.5 MG TABLET PO PRN ×4 (03:52→19:51)
[2023-01-07] MEDS: ACETAMINOPHEN 325 MG TABLET PO PRN (05:15)
[2023-01-07] MEDS: PANTOPRAZOLE 40 MG TABLET.DR PO SCH (06:26)
[2023-01-07 08:00] VITALS: BP 143/88
[2023-01-07] MEDS: FLUTICASONE/VILANTEROL 1 EACH BLST.W.DEV IH SCH (09:00)
[2023-01-07] MEDS: MULTIVIT W/MINERALS 1 TAB TABLET PO SCH (09:07)
[2023-01-07] MEDS: ASPIRIN EC 81 MG TABLET.DR PO SCH (09:07)
[2023-01-07] MEDS: MEMANTINE HCL 5 MG TABLET PO SCH ×2 (09:08→21:35)
[2023-01-07] MEDS: risperiDONE 1 MG TABLET PO SCH ×2 (09:08→18:00)
[2023-01-07] MEDS: DOCUSATE SODIUM 100 MG CAPSULE PO SCH (09:09)
[2023-01-07] MEDS ORDERED: HALOPERIDOL LACTATE INJ 5 MG/ML VIAL IM STA (15:22)
[2023-01-07] MEDS ORDERED: LORAZEPAM INJ 2 MG/ML VIAL IM STA (15:22)
[2023-01-07 19:58] VITALS: BP 108/67
[2023-01-07] MEDS: BENZTROPINE MESYLATE (1 MG) 1 MG TABLET PO SCH (21:35)
[2023-01-08] MEDS: clonazePAM 0.5 MG TABLET PO PRN ×5 (01:01→22:16)
[2023-01-08] MEDS: PANTOPRAZOLE 40 MG TABLET.DR PO SCH (07:24)
[2023-01-08 08:00] VITALS: BP 145/85
[2023-01-08] MEDS: DOCUSATE SODIUM 100 MG CAPSULE PO SCH (08:54)
[2023-01-08] MEDS: ASPIRIN EC 81 MG TABLET.DR PO SCH (08:54)
[2023-01-08] MEDS: MEMANTINE HCL 5 MG TABLET PO SCH ×2 (08:54→20:54)
[2023-01-08] MEDS: risperiDONE 1 MG TABLET PO SCH ×2 (08:54→17:23)
[2023-01-08] MEDS: MULTIVIT W/MINERALS 1 TAB TABLET PO SCH (08:54)
[2023-01-08] MEDS: ENSURE ENLIVE 237 ML LIQUID (VANILLA) PO SCH ×2 (08:54→17:23)
[2023-01-08] MEDS: FLUTICASONE/VILANTEROL 1 EACH BLST.W.DEV IH SCH (08:56)
[2023-01-08] MEDS: ALBUTEROL FS 2.5 MG/0.5 ML VIAL.NEB NEB SCH ×3 (08:57→23:54)
[2023-01-08] MEDS: IPRATROPIUM NEB FS 0.5 MG/2.5 ML AMPUL.NEB IH SCH ×3 (08:57→23:54)
[2023-01-08] MEDS ORDERED: PALIPERIDONE PALMITATE 234 MG/1.5 ML SYRINGE IM ONE (13:00)
[2023-01-08 16:00] VITALS: BP 133/97
[2023-01-08 20:10] VITALS: BP 113/64
[2023-01-08] MEDS: TEMAZEPAM 7.5 MG CAPSULE PO PRN (20:53)
[2023-01-08] MEDS: BENZTROPINE MESYLATE (1 MG) 1 MG TABLET PO SCH (21:14)
[2023-01-09] MEDS: clonazePAM 0.5 MG TABLET PO PRN ×2 (01:52→05:46)
[2023-01-09] MEDS: ACETAMINOPHEN 325 MG TABLET PO PRN (02:37)
[2023-01-09] MEDS ORDERED: LORAZEPAM INJ 2 MG/ML VIAL IM STA (05:51)
[2023-01-09] MEDS: PANTOPRAZOLE 40 MG TABLET.DR PO SCH (07:05)
[2023-01-09] MEDS: ENSURE ENLIVE 237 ML LIQUID (VANILLA) PO SCH ×2 (07:50→17:07)
[2023-01-09 08:00] VITALS: BP 124/74
[2023-01-09] MEDS: ALBUTEROL FS 2.5 MG/0.5 ML VIAL.NEB NEB SCH ×3 (08:32→23:30)
[2023-01-09] MEDS: IPRATROPIUM NEB FS 0.5 MG/2.5 ML AMPUL.NEB IH SCH ×3 (08:32→23:30)
[2023-01-09] MEDS: risperiDONE 1 MG TABLET PO SCH ×2 (08:37→16:29)
[2023-01-09] MEDS: MEMANTINE HCL 5 MG TABLET PO SCH ×2 (08:37→21:21)
[2023-01-09] MEDS: MULTIVIT W/MINERALS 1 TAB TABLET PO SCH (08:37)
[2023-01-09] MEDS: DOCUSATE SODIUM 100 MG CAPSULE PO SCH (08:37)
[2023-01-09] MEDS: FLUTICASONE/VILANTEROL 1 EACH BLST.W.DEV IH SCH (08:37)
[2023-01-09] MEDS: ASPIRIN EC 81 MG TABLET.DR PO SCH (08:38)
[2023-01-09 16:00] VITALS: BP 105/71
[2023-01-09 20:32] VITALS: BP 117/62
[2023-01-09] MEDS: BENZTROPINE MESYLATE (1 MG) 1 MG TABLET PO SCH (21:21)
[2023-01-10] MEDS: clonazePAM 0.5 MG TABLET PO PRN ×4 (01:12→14:16)
[2023-01-10] MEDS: PANTOPRAZOLE 40 MG TABLET.DR PO SCH (07:25)
[2023-01-10 08:00] VITALS: BP 133/82
[2023-01-10] MEDS: ASPIRIN EC 81 MG TABLET.DR PO SCH (08:09)
[2023-01-10] MEDS: risperiDONE 1 MG TABLET PO SCH ×2 (08:09→16:38)
[2023-01-10] MEDS: MEMANTINE HCL 5 MG TABLET PO SCH ×2 (08:09→21:15)
[2023-01-10] MEDS: MULTIVIT W/MINERALS 1 TAB TABLET PO SCH (08:10)
[2023-01-10] MEDS: ENSURE ENLIVE 237 ML LIQUID (VANILLA) PO SCH ×2 (08:10→16:39)
[2023-01-10] MEDS: DOCUSATE SODIUM 100 MG CAPSULE PO SCH (08:10)
[2023-01-10] MEDS: ALBUTEROL FS 2.5 MG/0.5 ML VIAL.NEB NEB SCH ×3 (08:20→23:30)
[2023-01-10] MEDS: IPRATROPIUM NEB FS 0.5 MG/2.5 ML AMPUL.NEB IH SCH ×3 (08:20→23:30)
[2023-01-10] MEDS: FLUTICASONE/VILANTEROL 1 EACH BLST.W.DEV IH SCH (09:55)
[2023-01-10 16:00] VITALS: BP 137/89
[2023-01-10 20:00] VITALS: BP 110/73
[2023-01-10] MEDS: OLANZAPINE ZYDIS 5 MG TAB.RAPDIS PO SCH (21:15)
[2023-01-10] MEDS: BENZTROPINE MESYLATE (1 MG) 1 MG TABLET PO SCH (21:15)
[2023-01-11] MEDS: PANTOPRAZOLE 40 MG TABLET.DR PO SCH (06:05)
[2023-01-11] MEDS: ENSURE ENLIVE 237 ML LIQUID (VANILLA) PO SCH ×2 (07:50→17:19)
[2023-01-11 08:00] VITALS: BP 125/77
[2023-01-11] MEDS: IPRATROPIUM NEB FS 0.5 MG/2.5 ML AMPUL.NEB IH SCH ×3 (08:15→23:30)
[2023-01-11] MEDS: ALBUTEROL FS 2.5 MG/0.5 ML VIAL.NEB NEB SCH ×3 (08:15→23:30)
[2023-01-11] MEDS: DOCUSATE SODIUM 100 MG CAPSULE PO SCH (08:48)
[2023-01-11] MEDS: MULTIVIT W/MINERALS 1 TAB TABLET PO SCH (08:48)
[2023-01-11] MEDS: risperiDONE 1 MG TABLET PO SCH ×2 (08:48→17:00)
[2023-01-11] MEDS: MEMANTINE HCL 5 MG TABLET PO SCH ×2 (08:48→21:36)
[2023-01-11] MEDS: OLANZAPINE ZYDIS 5 MG TAB.RAPDIS PO SCH ×2 (08:48→21:36)
[2023-01-11] MEDS: ASPIRIN EC 81 MG TABLET.DR PO SCH (08:48)
[2023-01-11] MEDS: FLUTICASONE/VILANTEROL 1 EACH BLST.W.DEV IH SCH (08:48)
[2023-01-11] MEDS: clonazePAM 0.5 MG TABLET PO PRN (12:58)
[2023-01-11 16:00] VITALS: BP 115/80
[2023-01-11] MEDS ORDERED: LORAZEPAM INJ 2 MG/ML VIAL IM ONE (16:00)
[2023-01-11] MEDS ORDERED: HALOPERIDOL LACTATE INJ 5 MG/ML VIAL IM ONE (16:00)
[2023-01-11 20:00] VITALS: BP 112/62
[2023-01-11] MEDS: BENZTROPINE MESYLATE (1 MG) 1 MG TABLET PO SCH (21:35)
[2023-01-12] MEDS: clonazePAM 0.5 MG TABLET PO PRN ×4 (05:57→20:10)
[2023-01-12] MEDS: PANTOPRAZOLE 40 MG TABLET.DR PO SCH (07:07)
[2023-01-12] MEDS: IPRATROPIUM NEB FS 0.5 MG/2.5 ML AMPUL.NEB IH SCH ×2 (07:35→15:17)
[2023-01-12] MEDS: ALBUTEROL FS 2.5 MG/0.5 ML VIAL.NEB NEB SCH ×2 (07:35→15:17)
[2023-01-12 08:00] VITALS: BP 108/68
[2023-01-12] MEDS: ENSURE ENLIVE 237 ML LIQUID (VANILLA) PO SCH ×2 (08:13→16:48)
[2023-01-12] MEDS: OLANZAPINE ZYDIS 5 MG TAB.RAPDIS PO SCH ×2 (08:22→13:17)
[2023-01-12] MEDS: MULTIVIT W/MINERALS 1 TAB TABLET PO SCH (08:22)
[2023-01-12] MEDS: DOCUSATE SODIUM 100 MG CAPSULE PO SCH (08:23)
[2023-01-12] MEDS: ASPIRIN EC 81 MG TABLET.DR PO SCH (08:23)
[2023-01-12] MEDS: MEMANTINE HCL 5 MG TABLET PO SCH ×2 (08:23→21:05)
[2023-01-12] MEDS: risperiDONE 1 MG TABLET PO SCH ×2 (08:23→16:48)
[2023-01-12] MEDS: FLUTICASONE/VILANTEROL 1 EACH BLST.W.DEV IH SCH (08:25)
[2023-01-12] MEDS: ACETAMINOPHEN 325 MG TABLET PO PRN (14:44)
[2023-01-12 20:35] VITALS: BP 110/81
[2023-01-12] MEDS: BENZTROPINE MESYLATE (1 MG) 1 MG TABLET PO SCH (21:05)
[2023-01-13] MEDS: IPRATROPIUM NEB FS 0.5 MG/2.5 ML AMPUL.NEB IH SCH ×4 (00:31→23:30)
[2023-01-13] MEDS: ALBUTEROL FS 2.5 MG/0.5 ML VIAL.NEB NEB SCH ×4 (00:31→23:30)
[2023-01-13] MEDS: clonazePAM 0.5 MG TABLET PO PRN ×5 (01:27→23:23)
[2023-01-13] MEDS: ACETAMINOPHEN 325 MG TABLET PO PRN ×2 (03:09→08:46)
[2023-01-13] MEDS: PANTOPRAZOLE 40 MG TABLET.DR PO SCH (06:00)
[2023-01-13 08:00] VITALS: BP 130/76
[2023-01-13] MEDS: DOCUSATE SODIUM 100 MG CAPSULE PO SCH (08:46)
[2023-01-13] MEDS: OLANZAPINE ZYDIS 5 MG TAB.RAPDIS PO SCH ×2 (08:46→12:54)
[2023-01-13] MEDS: ENSURE ENLIVE 237 ML LIQUID (VANILLA) PO SCH ×2 (08:47→16:46)
[2023-01-13] MEDS: MULTIVIT W/MINERALS 1 TAB TABLET PO SCH (08:47)
[2023-01-13] MEDS: ASPIRIN EC 81 MG TABLET.DR PO SCH (08:47)
[2023-01-13] MEDS: MEMANTINE HCL 5 MG TABLET PO SCH ×2 (08:47→20:41)
[2023-01-13] MEDS: risperiDONE 1 MG TABLET PO SCH ×2 (08:47→16:39)
[2023-01-13] MEDS: FLUTICASONE/VILANTEROL 1 EACH BLST.W.DEV IH SCH (09:00)
[2023-01-13 16:00] VITALS: BP 129/86
[2023-01-13 20:13] VITALS: BP 132/85
[2023-01-13] MEDS: BENZTROPINE MESYLATE (1 MG) 1 MG TABLET PO SCH (21:17)
[2023-01-13] MEDS: TEMAZEPAM 7.5 MG CAPSULE PO PRN (22:09)
[2023-01-14] MEDS: ACETAMINOPHEN 325 MG TABLET PO PRN (01:15)
[2023-01-14] MEDS: clonazePAM 0.5 MG TABLET PO PRN ×4 (03:26→17:04)
[2023-01-14] MEDS: PANTOPRAZOLE 40 MG TABLET.DR PO SCH (06:06)
[2023-01-14] MEDS: ALBUTEROL FS 2.5 MG/0.5 ML VIAL.NEB NEB SCH ×3 (07:35→23:23)
[2023-01-14] MEDS: IPRATROPIUM NEB FS 0.5 MG/2.5 ML AMPUL.NEB IH SCH ×3 (07:35→23:23)
[2023-01-14 08:00] VITALS: BP 112/74
[2023-01-14] MEDS: OLANZAPINE ZYDIS 5 MG TAB.RAPDIS PO SCH ×2 (08:37→13:43)
[2023-01-14] MEDS: MULTIVIT W/MINERALS 1 TAB TABLET PO SCH (08:37)
[2023-01-14] MEDS: ENSURE ENLIVE 237 ML LIQUID (VANILLA) PO SCH ×2 (08:37→17:05)
[2023-01-14] MEDS: DOCUSATE SODIUM 100 MG CAPSULE PO SCH (08:37)
[2023-01-14] MEDS: risperiDONE 1 MG TABLET PO SCH ×2 (08:38→17:04)
[2023-01-14] MEDS: MEMANTINE HCL 5 MG TABLET PO SCH ×2 (08:38→21:04)
[2023-01-14] MEDS: ASPIRIN EC 81 MG TABLET.DR PO SCH (08:38)
[2023-01-14] MEDS: FLUTICASONE/VILANTEROL 1 EACH BLST.W.DEV IH SCH (08:41)
[2023-01-14 16:00] VITALS: BP 95/63
[2023-01-14 20:27] VITALS: BP 101/52
[2023-01-14] MEDS: BENZTROPINE MESYLATE (1 MG) 1 MG TABLET PO SCH (21:04)
[2023-01-14] MEDS: TEMAZEPAM 7.5 MG CAPSULE PO PRN (21:05)
[2023-01-15] MEDS: clonazePAM 0.5 MG TABLET PO PRN ×2 (03:18→14:04)
[2023-01-15] MEDS: PANTOPRAZOLE 40 MG TABLET.DR PO SCH (07:20)
[2023-01-15] MEDS: ALBUTEROL FS 2.5 MG/0.5 ML VIAL.NEB NEB SCH ×3 (07:26→23:36)
[2023-01-15] MEDS: IPRATROPIUM NEB FS 0.5 MG/2.5 ML AMPUL.NEB IH SCH ×3 (07:26→23:36)
[2023-01-15 08:00] VITALS: BP 129/78
[2023-01-15] MEDS: MEMANTINE HCL 5 MG TABLET PO SCH ×2 (08:13→21:02)
[2023-01-15] MEDS: ENSURE ENLIVE 237 ML LIQUID (VANILLA) PO SCH (08:13)
[2023-01-15] MEDS: risperiDONE 1 MG TABLET PO SCH ×2 (08:13→16:06)
[2023-01-15] MEDS: OLANZAPINE ZYDIS 5 MG TAB.RAPDIS PO SCH ×2 (08:13→12:11)
[2023-01-15] MEDS: ASPIRIN EC 81 MG TABLET.DR PO SCH (08:13)
[2023-01-15] MEDS: DOCUSATE SODIUM 100 MG CAPSULE PO SCH (08:13)
[2023-01-15] MEDS: MULTIVIT W/MINERALS 1 TAB TABLET PO SCH (08:13)
[2023-01-15] MEDS: FLUTICASONE/VILANTEROL 1 EACH BLST.W.DEV IH SCH (08:17)
[2023-01-15 16:00] VITALS: BP 125/83
[2023-01-15] MEDS ORDERED: LORAZEPAM INJ 2 MG/ML VIAL IM STA (16:05)
[2023-01-15] MEDS: GLUCERNA SHAKE 237 ML CAN PO SCH (17:22)
[2023-01-15] MEDS: NEOMY SULF/BACITRAC ZN/POLY 15 GM TUBE TP SCH (17:35)
[2023-01-15 20:34] VITALS: BP 99/50
[2023-01-15] MEDS: BENZTROPINE MESYLATE (1 MG) 1 MG TABLET PO SCH (21:02)
[2023-01-16] MEDS: TEMAZEPAM 7.5 MG CAPSULE PO PRN (01:03)
[2023-01-16] MEDS: clonazePAM 0.5 MG TABLET PO PRN ×2 (05:28→19:47)
[2023-01-16] MEDS: PANTOPRAZOLE 40 MG TABLET.DR PO SCH (06:43)
[2023-01-16] MEDS: IPRATROPIUM NEB FS 0.5 MG/2.5 ML AMPUL.NEB IH SCH ×4 (07:47→23:04)
[2023-01-16] MEDS: ALBUTEROL FS 2.5 MG/0.5 ML VIAL.NEB NEB SCH ×4 (07:47→23:04)
[2023-01-16 08:00] VITALS: BP 134/69
[2023-01-16] MEDS: GLUCERNA SHAKE 237 ML CAN PO SCH ×2 (08:17→16:14)
[2023-01-16] MEDS: DOCUSATE SODIUM 100 MG CAPSULE PO SCH (08:17)
[2023-01-16] MEDS: OLANZAPINE ZYDIS 5 MG TAB.RAPDIS PO SCH ×2 (08:17→12:16)
[2023-01-16] MEDS: MULTIVIT W/MINERALS 1 TAB TABLET PO SCH (08:17)
[2023-01-16] MEDS: risperiDONE 1 MG TABLET PO SCH ×2 (08:17→16:14)
[2023-01-16] MEDS: ASPIRIN EC 81 MG TABLET.DR PO SCH (08:17)
[2023-01-16] MEDS: MEMANTINE HCL 5 MG TABLET PO SCH ×2 (08:18→20:51)
[2023-01-16] MEDS: NEOMY SULF/BACITRAC ZN/POLY 15 GM TUBE TP SCH ×2 (08:19→16:15)
[2023-01-16] MEDS: FLUTICASONE/VILANTEROL 1 EACH BLST.W.DEV IH SCH (08:19)
[2023-01-16 16:00] VITALS: BP 112/68
[2023-01-16] MEDS: BENZTROPINE MESYLATE (1 MG) 1 MG TABLET PO SCH (21:28)
[2023-01-17] MEDS: ALBUTEROL FS 2.5 MG/0.5 ML VIAL.NEB NEB SCH (07:35)
[2023-01-17] MEDS: IPRATROPIUM NEB FS 0.5 MG/2.5 ML AMPUL.NEB IH SCH (07:35)
[2023-01-17] MEDS: PANTOPRAZOLE 40 MG TABLET.DR PO SCH (07:42)
[2023-01-17 08:00] VITALS: BP 117/56
[2023-01-17] MEDS: DOCUSATE SODIUM 100 MG CAPSULE PO SCH (08:00)
[2023-01-17] MEDS: MULTIVIT W/MINERALS 1 TAB TABLET PO SCH (08:00)
[2023-01-17] MEDS: MEMANTINE HCL 5 MG TABLET PO SCH (08:00)
[2023-01-17] MEDS: risperiDONE 1 MG TABLET PO SCH (08:00)
[2023-01-17] MEDS: ASPIRIN EC 81 MG TABLET.DR PO SCH (08:00)
[2023-01-17] MEDS: OLANZAPINE ZYDIS 5 MG TAB.RAPDIS PO SCH ×2 (08:00→12:11)
[2023-01-17] MEDS: FLUTICASONE/VILANTEROL 1 EACH BLST.W.DEV IH SCH (08:01)
[2023-01-17] MEDS: NEOMY SULF/BACITRAC ZN/POLY 15 GM TUBE TP SCH (08:01)
[2023-01-17] MEDS: GLUCERNA SHAKE 237 ML CAN PO SCH (08:07)
== END 2023-01-17 13:45 | DRG 885 ==
LOC: ER 19:01 → GPS 23:18
PROVIDERS: ADMIT Psychiatry & Neurology Psychiatry; ATTEND Nurse Practitioner Acute Care
DX: F20.9 Schizophrenia, unspecified (principal); E44.1 Mild protein-calorie malnutrition; R45.851 Suicidal ideations; F02.811 Dementia in other diseases classified elsewhere, unspecified severity, with agitation; K21.9 Gastro-esophageal reflux disease without esophagitis; Z87.891 Personal history of nicotine dependence; J44.9 Chronic obstructive pulmonary disease, unspecified; Z91.199 Patient's noncompliance with other medical treatment and regimen due to unspecified reason; G40.909 Epilepsy, unspecified, not intractable, without status epilepticus; E88.09 Other disorders of plasma-protein metabolism, not elsewhere classified; Z68.20 Body mass index [BMI] 20.0-20.9, adult; G62.9 Polyneuropathy, unspecified; Z79.899 Other long term (current) drug therapy; Z79.82 Long term (current) use of aspirin; Z88.8 Allergy status to other drugs, medicaments and biological substances; Z20.822 Contact with and (suspected) exposure to COVID-19; G30.9 Alzheimer's disease, unspecified; S00.81XA Abrasion of other part of head, initial encounter; X58.XXXA Exposure to other specified factors, initial encounter; Y92.129 Unspecified place in nursing home as the place of occurrence of the external cause
CPT/HCPCS: 36415; 80048-TC; 80053-TC; 80061-TC; 80076-TC; 81001; 82962-TC; 85025-TC; 87081-TC; 94799-TC; 97116-TC; 97530-TC; C9803; G0480; J1630; J2060; J2426